=== PATIENT | male | born 1970 | race Caucasian/White ===

== ENCOUNTER → 2021-12-18 | Outpatient (CLI) | payer OTHER ==
[~2021-12-18] MED LIST: AMLODIPINE PO; BENAZEPRIL PO; FELDENE10 MG PO; NORFLEX 100 MG100 MG PO
== END ==
LOC: CT 12-09 13:00
DX: G93.9 Disorder of brain, unspecified (principal); G44.89 Other headache syndrome; G43.009 Migraine without aura, not intractable, without status migrainosus; S05.41XA Penetrating wound of orbit with or without foreign body, right eye, initial encounter; X58.XXXA Exposure to other specified factors, initial encounter; R90.89 Other abnormal findings on diagnostic imaging of central nervous system; J32.0 Chronic maxillary sinusitis
CPT/HCPCS: 36415; 70470; 70480; 82565; Q9967